=== PATIENT | male | born 1955 | race Two or more races ===

== ENCOUNTER → 2018-02-15 | Outpatient (RCR) | payer MEDICARE, MEDICAID | END | disposition home or self-care (01) | LOC: WCC 14:36 | DX: E11.621 Type 2 diabetes mellitus with foot ulcer (principal); I11.0 Hypertensive heart disease with heart failure; E11.9 Type 2 diabetes mellitus without complications; M19.90 Unspecified osteoarthritis, unspecified site | CPT/HCPCS: G0463 ==

== ENCOUNTER 2018-02-26 13:00 | Outpatient (RCR) | payer MEDICARE, MEDICAID | END 2018-03-17 | disposition home or self-care (01) | LOC: WCC 13:00 | DX: L97.523 Non-pressure chronic ulcer of other part of left foot with necrosis of muscle (principal); E11.621 Type 2 diabetes mellitus with foot ulcer; Z88.0 Allergy status to penicillin | CPT/HCPCS: 82962; G0277 ==